=== PATIENT | male | born 1950 | race Caucasian/White ===

== ENCOUNTER → 2017-06-12 | Outpatient (REF) ==
[~2017-06-12] MED LIST: ADVIL 200MG TA200 MG PO
== END ==
LOC: WSOH 17:15
DX: Z02.89 Encounter for other administrative examinations (principal)

== ENCOUNTER → 2018-06-29 | Outpatient (REF) ==
[2018-06-29 16:21] LABS: IRON,SERUM 46 ug/dL (35-150)
[2018-06-29 16:31] LABS: TOTAL IRON BINDING CAPACITY 360 ug/dL (261-462)
[2018-06-29 16:57] LABS: FERRITIN 93 ng/mL (18-464)
== END ==
LOC: ZLAB.WCH 15:53
PROVIDERS: Internal Medicine
DX: Z01.89 Encounter for other specified special examinations (principal)

== ENCOUNTER → 2018-06-29 | Outpatient (REF) ==
[2018-06-29 09:13] LABS: PSA-TOTAL 0.41 ng/mL (0-4); THYROID STIMULATING HORMONE 5.17 uIU/mL (0.465-4.680)
== END ==
LOC: ZLAB.WCH 08:30
PROVIDERS: Internal Medicine
DX: Z01.89 Encounter for other specified special examinations (principal)
CPT/HCPCS: G0103